=== PATIENT | male | born 1975 | race Caucasian/White ===

== ENCOUNTER 2024-10-11 10:50 | Outpatient (CLI) | payer BC, SELFPAY ==
[2024-10-12 14:48] LABS: Endomysial IgA Antibody Negative (Negative)
[2024-10-12 16:45] LABS: Deamidated Gliadin Abs, IgA 3 units (0-19); Deamidated Gliadin Abs, IgG 3 units (0-19); Tissue Transglutaminase IgA Ab <2 U/mL (0-3); Tissue Transglutaminase IgG Ab <2 U/mL (0-5)
[2024-10-17 08:33] LABS: Reticulin IgA Antibody Negative titer (Neg:<1:2.5)
== END 2024-10-11 23:59 | disposition home or self-care (01) ==
LOC: LAB 10:53
PROVIDERS: Visit Provider Nurse Practitioner Family
DX: R19.8 Other specified symptoms and signs involving the digestive system and abdomen (principal); R14.0 Abdominal distension (gaseous)
CPT/HCPCS: 36415; 83516; 86255; 86256